=== PATIENT | male | born 1990 | race Caucasian/White ===

== ENCOUNTER 2021-11-05 11:33 | Emergency (ER) | payer OTHER ==
[~2021-11-05 11:33] MED LIST: NAPROXEN500 MG PO
== END 2021-11-05 13:28 | disposition home or self-care (01) ==
LOC: FER 11:33
DX: F17.200 Nicotine dependence, unspecified, uncomplicated (principal); E11.9 Type 2 diabetes mellitus without complications; Z28.310 Unvaccinated for COVID-19; Z79.84 Long term (current) use of oral hypoglycemic drugs
CPT/HCPCS: 73560; 96372; 99283; J1885

== ENCOUNTER 2022-02-25 13:53 | Emergency (ER) | payer OTHER ==
[2022-02-25 15:55] LABS: CORONAVIRUS 2019 SARS-COV-2 NEGATIVE (NEGATIVE); INFLUENZA A NAA NEGATIVE (NEGATIVE)
== END 2022-02-25 17:03 | disposition home or self-care (01) ==
LOC: FER 13:53
PROVIDERS: Nurse Practitioner Family
DX: B34.9 Viral infection, unspecified (principal); E11.9 Type 2 diabetes mellitus without complications; F17.210 Nicotine dependence, cigarettes, uncomplicated; Z20.822 Contact with and (suspected) exposure to COVID-19; Z28.310 Unvaccinated for COVID-19
CPT/HCPCS: 99283; U0002